=== PATIENT | female | born 1945 | race African-American/Black ===

== ENCOUNTER 2021-05-26 14:02 | Emergency (ER) | payer MEDICARE, MEDICAID ==
[~2021-05-26] VITALS: Ht 160 cm; Wt 70.0 kg
[2021-05-26] MEDS ORDERED: TOPUD MT (15:09)
[2021-05-26 15:37] VITALS: BP 141/71
== END 2021-05-26 15:40 | disposition home or self-care (01) ==
LOC: ER 14:32
DX: S43.102A Unspecified dislocation of left acromioclavicular joint, initial encounter (principal); W01.0XXA Fall on same level from slipping, tripping and stumbling without subsequent striking against object, initial encounter; Y93.01 Activity, walking, marching and hiking; Y92.89 Other specified places as the place of occurrence of the external cause; Y99.8 Other external cause status
CPT/HCPCS: 73030; 99283; A4565